=== PATIENT | male | born 1980 | race African-American/Black ===

== ENCOUNTER 2018-08-15 16:48 | Emergency (ER) | payer BC, SELFPAY ==
[2018-08-15 16:49] VITALS: BP 144/85; PULSE 88; RESP 18; TEMP 37.4; O2SAT 97; BMI 32.8
--- NOTE | 2018-08-15 17:00 | ED.DCSUM_ITS ---
History of Present Illness Chief Complaint: Dental Informant: Patient Onset: Weeks Narrative: Patient presents to the ED with left upper dental pain that started 1 week ago. He states he has been taking Tylenol for the pain without relief. He is now noted some swelling today around this area that he was concerned about. He does not taken thing else for analgesia. He has had this in the past and has went to a dental clinic for this. He denies any fever, chills, nausea, vomiting. Past Medical History - Allergies and Home Meds Allergies/Adverse Reactions: Allergies No Known Allergies Allergy (Verified 08/15/18 16:48) Primary Care Physician: Care Physician,No Primary [Primary Care Provider] - Surgical History: no surgical history Smoking Status: Current every day smoker - Family History Maternal Family History: Reports: No pertinent history Paternal Family History: Reports: No pertinent history Review of Systems General: Denies: Chills, Fever, Sweats Eyes: Denies: Visual changes - bilaterally, Diplopia ENT: Reports: - - Dental pain. Denies: Rhinorrhea, Sore throat Cardiovascular: Denies: Chest pain, Palpitations Respiratory: Denies: Dyspnea, Cough, Dyspnea on exertion Gastrointestinal: Denies: Abdominal pain, Nausea, Vomiting, Diarrhea, Melena, Hematochezia Genitourinary: Denies: Dysuria, Hematuria, Frequency Musculoskeletal: Denies: Back pain, Extremity Pain Skin: Denies: Rash, Wounds Neurological: Denies: Headache, Weakness, Numbness Physical Exam Vital Signs/Narrative: Vital Signs Temp Pulse Resp BP Pulse Ox 08/15/18 16:49 99.3 F H 88 18 144/85 H 97 General: Well nourished, Well developed, No Acute Distress Head: Normocephalic, Atraumatic Eyes: Perrl, EOMI ENT: - - Tenderness to palpation over left molar which does appear to be fractured. Surrounding edema especially to the medial aspect of this tooth with fluctuance. Neck: Supple, Nontender Cardiovascular: Regular rate, Regular rhythm, No murmurs Respiratory: No distress, CTA bilaterally, Chest nontender Abdomen: Soft, Nontender, Nondistended, Normal bowel sounds Back: Nontender, Normal Inspection Extremities: Nontender, No edema Skin: Normal color, No rash Neurological: Alert, Oriented x3, Cranial nerves II-XII grossly intact, Normal Strength, Normal Sensation Psychological: Normal affect, Normal Mood Diagnostic/Tx/Re-eval - Medical Decision Making Presents to the ED with left upper dental pain for the last week and notable swelling today. On physical exam, patient does appear to have a dental infection with periapical abscess. It was incised and drained in the emergency department. Patient was educated on warm salt water gargles. He will be placed on a course of penicillin VK and was instructed to take [id number] anti- inflammatories for analgesia. He was educated on signs/symptoms to return to the ED. He was instructed to follow-up with the dental clinic. He was provided discharge instructions. He is agreeable to plan. ED Disposition - Plan for ED Patient: Disposition: [facility] or Unit Diagnosis: Dental infection, Periapical abscess Instructions: Dental Abscess Prescriptions: Penicillin V Potassium 500 mg PO 4X/DAY #40 tab Prescription Printed Referrals: Care Physician,No Primary [Primary Care Provider] - Additional Instructions: Warm salt water gargles Take Tylenol or [id number] anti-inflammatories for pain Contact dental clinic tomorrow to arrange follow-up Take penicillin as prescribed
[2018-08-15 17:27] VITALS: RESP 18
== END 2018-08-15 17:26 | disposition home or self-care (01) ==
PROVIDERS: Emergency Provider Physician Assistant
DX: K04.7 Periapical abscess without sinus (principal); F17.200 Nicotine dependence, unspecified, uncomplicated
CPT/HCPCS: 41800; 99283

== ENCOUNTER 2019-02-16 13:39 | Emergency (ER) | payer BC, SELFPAY ==
[2019-02-16 13:40] VITALS: BP 154/82; PULSE 86; RESP 16; TEMP 36.5; BMI 31.4
--- NOTE | 2019-02-16 13:54 | ED.VIS.GEN ---
History of Present Illness Chief Complaint: Foreign Body Informant: Patient Onset: Today Narrative: Patient states that the end of a Q-tip broke out on his left ear canal he cannot get it out. Past Medical History - Allergies and Home Meds Allergies/Adverse Reactions: Allergies No Known Allergies Allergy (Verified 08/15/18 16:48) Primary Care Physician: Care Physician,No Primary [Primary Care Provider] - Surgical History: no surgical history Smoking Status: Current every day smoker - Family History Maternal Family History: Reports: No pertinent history Paternal Family History: Reports: No pertinent history Review of Systems General: Denies: Chills, Fever, Sweats Eyes: Denies: Visual changes - bilaterally, Diplopia ENT: Reports: - - Foreign body left ear. Denies: Bilateral ear pain, Left ear pain, Right ear pain, Rhinorrhea, Sore throat Cardiovascular: Denies: Chest pain, Palpitations Respiratory: Denies: Dyspnea, Cough, Dyspnea on exertion Gastrointestinal: Denies: Abdominal pain, Nausea, Vomiting, Diarrhea, Melena, Hematochezia Genitourinary: Denies: Dysuria, Hematuria, Frequency Musculoskeletal: Denies: Back pain, Extremity Pain Skin: Denies: Rash, Wounds Neurological: Denies: Headache, Weakness, Numbness Physical Exam Vital Signs/Narrative: Vital Signs Temp Pulse Resp BP 02/16/19 13:40 97.7 F L 86 16 154/82 H Inital Vital Signs reviewed: Yes General: Well nourished, Well developed, No Acute Distress Head: Normocephalic, Atraumatic Eyes: Perrl, EOMI ENT: Moist mucous membranes, No rhinorrhea, TM's clear, - - There is a piece of cotton in the left ear canal Neck: Supple, Nontender Cardiovascular: Regular rate, Regular rhythm, No murmurs Respiratory: No distress, CTA bilaterally, Chest nontender Abdomen: Soft, Nontender, Nondistended, Normal bowel sounds Back: Nontender, Normal Inspection Extremities: Nontender, No edema Skin: Normal color, No rash Neurological: Alert, Oriented x3, Cranial nerves II-XII grossly intact, Normal Strength, Normal Sensation Psychological: Normal affect, Normal Mood Diagnostic/Tx/Re-eval - Medical Decision Making Using warm water irrigation the Q-tip was removed without any difficulty. After irrigation tympanic membrane was intact. No significant irritation ear canal was noted. ED Disposition - Plan for ED Patient: Disposition: Home or Assisted Living Diagnosis: Ear foreign body Instructions: FOREIGN BODY, Ear Canal (Removed) Referrals: Casey Ramos MD [STAFF PHYSICIAN] - (as needed for primary care)
[2019-02-16 14:00] VITALS: BP 154/82; PULSE 86; RESP 16
== END 2019-02-16 14:03 | disposition home or self-care (01) ==
LOC: ED 14:02
PROVIDERS: Emergency Provider Emergency Medicine
DX: T16.2XXA Foreign body in left ear, initial encounter (principal); X58.XXXA Exposure to other specified factors, initial encounter; Y93.9 Activity, unspecified; Y92.9 Unspecified place or not applicable; F17.200 Nicotine dependence, unspecified, uncomplicated
CPT/HCPCS: 99282

== ENCOUNTER 2019-08-04 11:22 | Emergency (ER) | payer BC, SELFPAY ==
[2019-08-04 11:24] VITALS: BP 143/86; PULSE 109; RESP 16; TEMP 36.3; O2SAT 97; BMI 32.1
--- NOTE | 2019-08-04 11:37 | ED.VIS.GEN ---
History of Present Illness Chief Complaint: Upper Extremity Injury Informant: Patient Onset: Days Current Severity: Mild Maximum Severity: Mild Narrative: Patient complains of a pain to the left proximal forearm area medially that he has had since Thursday he indicates this part of his forearm will simply spasm primarily when he is at work and he has to stop what he is doing. He has no other complaints or symptoms he takes basically his finger and draws it across the medial left proximal forearm area 6 cm diameter tunica-biloxi. 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 He has no arthritic or joint pains or complaints he denies fever cough chest pain. He indicates when he is not working he does not have the spasm he was concerned he would have persistent symptoms today so he did not go to work Past Medical History - Allergies and Home Meds Allergies/Adverse Reactions: Allergies No Known Allergies Allergy (Verified 08/04/19 11:23) Primary Care Physician: Care Physician,No Primary [Primary Care Provider] - Past Medical History: - - He denies any history of cardiovascular orthopedic or any past history Surgical History: no surgical history Smoking Status: Current every day smoker - Family History Maternal Family History: Reports: No pertinent history Paternal Family History: Reports: No pertinent history Review of Systems General: Denies: Chills, Fever, Sweats Eyes: Denies: Visual changes - bilaterally, Diplopia ENT: Denies: Rhinorrhea, Sore throat Cardiovascular: Denies: Chest pain, Palpitations Respiratory: Denies: Dyspnea, Cough, Dyspnea on exertion Gastrointestinal: Denies: Abdominal pain, Nausea, Vomiting, Diarrhea, Melena, Hematochezia Genitourinary: Denies: Dysuria, Hematuria, Frequency Musculoskeletal: Reports: Extremity Pain. Denies: Back pain Skin: Denies: Rash, Wounds Neurological: Denies: Headache, Weakness, Numbness Physical Exam Vital Signs/Narrative: Vital Signs Temp Pulse Resp BP Pulse Ox 08/04/19 11:24 97.4 F L 109 H 16 143/86 H 97 General: Well nourished, Well developed, No Acute Distress Head: Normocephalic, Atraumatic Eyes: Perrl, EOMI ENT: Moist mucous membranes, No rhinorrhea Neck: Supple, Nontender Cardiovascular: Regular rate, Regular rhythm, No murmurs Respiratory: No distress, CTA bilaterally, Chest nontender Abdomen: Soft, Nontender, Nondistended, Normal bowel sounds Back: Nontender, Normal Inspection Extremities: Nontender, No edema, - - He points to the left medial proximal forearm area again the 6 cm tunica-biloxi this area is soft there is no signs of warmth mass trauma or infection he has full range of motion at the elbow shoulder forearm otherwise unremarkable wrist function hand function finger thumb function normal radial pulse cap refill all normal he is able to fully flex and extend at the elbow he has no tenderness to palpation of any of the bony prominences of the left upper extremity he denies any trauma except the repetitive work as above the rest of his physical exam is unremarkable this is the only part of his body bothering him and currently he is really not having any symptoms as he did not exercise the extremity at work Skin: Normal color, No rash Neurological: Alert, Oriented x3, Cranial nerves II-XII grossly intact, Normal Strength, Normal Sensation Psychological: Normal affect, Normal Mood Diagnostic/Tx/Re-eval - Medical Decision Making I had a long conversation with the patient he has having no cardiovascular symptoms of a focal area involving this part of his left upper extremity we discussed obtaining imaging studies he declined that at this time of explained exact etiology is unclear he will require further management he is comfortable discharge home on Naprosyn off work for a few days ice to the area and follow-up with orthopedics and return for change in symptoms Home stable Final impression left upper extremity forearm medial pain etiology unclear ED Disposition - Plan for ED Patient: Instructions: ED ELBOW SPRAIN Prescriptions: Naproxen [Naprosyn] 500 mg PO BID PRN #20 tab Prescription Printed Referrals: Care Physician,No Primary [Primary Care Provider] - Nghia Solis MD [STAFF PHYSICIAN] -
[2019-08-04] MEDS: Naproxen 500 MG Tablet PO (11:54)
== END 2019-08-04 12:10 | disposition home or self-care (01) ==
LOC: ED 11:59
PROVIDERS: Emergency Provider Emergency Medicine
DX: M79.632 Pain in left forearm (principal); F17.200 Nicotine dependence, unspecified, uncomplicated
CPT/HCPCS: 99283

== ENCOUNTER 2019-11-08 20:08 | Emergency (ER) | payer BC, SELFPAY ==
[2019-11-08 20:09] VITALS: BP 140/92; PULSE 80; RESP 18; TEMP 36.6; O2SAT 98; BMI 32.1
--- NOTE | 2019-11-08 20:18 | ED.DCSUM_ITS ---
- ER Visit Summary Date of Service: 11/08/19 Chief Complaint: Cough History of Present Illness: The patient is a 39 M who presents with cough. Started 2 days ago. His cough is productive of sputum. He also admits to sinus congestion. No documented fevers at home. He has had chills. No ear pain or sore throat. He has had nasal congestion along with this. He took no medications for this at home. He states that he also lost his sense of taste today. He denies any exposure to anybody with coronavirus Physical Examination: Vital signs reviewed. HEENT exam unremarkable. Heart is regular rate and rhythm without murmurs. Lungs are clear to auscultation. Abdomen is soft and nontender. Extremities reveal no edema. Skin exam normal. Neurologic exam normal. Test Results: Coronavirus test is pending Emergency Department Course and Treatment: The patient's vital signs are normal. His lung sounds are clear. He may have the coronavirus. I will test him as a send out. I will give him Mucinex here, Mucinex D and albuterol for home. He will follow-up with his PCP. Treatment Plan: [] Disposition: Discharge Impression: URI, concern for coronavirus This note was generated with [employer] dictation software. It may contain incorrect words, spelling, and punctuation that were not noted in review of the chart prior to signing ED Disposition - Plan for ED Patient: Disposition: Home or Assisted Living Instructions: ED Upper Resp Infec No Abx Tx Prescriptions: Guaifenesin/Pseudoephedrne HCl [Mucinex D ER 600-60 mg Tablet] 1 ea PO BID #14 tab.er.12h Transmission Status: Pending to [facility] Albuterol Inhaler [Ventolin Hfa] 1 - 2 puff INHALATION Q4H PRN PRN #1 inhaler PRN Reason: Wheezing Transmission Status: Pending to [facility] Referrals: Care Physician,No Primary [Primary Care Provider] -
[2019-11-08] MEDS: guaiFENesin 600 MG Tablet PO (20:27)
[2019-11-08 20:37] VITALS: RESP 18
== END 2019-11-08 20:42 | disposition home or self-care (01) ==
LOC: ED 20:24
PROVIDERS: Emergency Provider Emergency Medicine
DX: J06.9 Acute upper respiratory infection, unspecified (principal); Z20.828 Contact with and (suspected) exposure to other viral communicable diseases
CPT/HCPCS: 87635; 99283; C9803; U0003

== ENCOUNTER 2020-04-17 05:22 | Emergency (ER) | payer BC, SELFPAY ==
[2020-04-17 05:26] VITALS: BP 180/104; PULSE 98; RESP 16; TEMP 36.9; O2SAT 100; BMI 35.2
--- NOTE | 2020-04-17 05:39 | ED.VISSUMM ---
- ER Visit Summary Date of Service: 04/17/20 Chief Complaint: Back pain History of Present Illness: The patient is a 40 M who almost fell but caught himself. This happened last night. He is having back pain since. The pain is in his lower back and radiates down his left leg laterally. He never had this before. No numbness or anesthesia. No bowel or bladder change. No abdominal pain or GI symptoms. No urinary symptoms. No numbness or weakness. No fever or systemic symptoms. No history of blood thinners. No history of cancer or immune compromise. No other trauma. No surgical history. Physical Examination: Afebrile vital signs unremarkable except for blood pressure 180/104. Inspection is normal. He has diffuse tenderness with light touch to his lumbar region. Good strength, sensation. Reflexes 2+ and symmetric. Pulses strong and equal. Test Results: None indicated Emergency Department Course and Treatment: Patient has myofascial back pain. There is nothing to suggest fracture, abscess, hematoma, cauda equina. Emergent imaging is not indicated. He was treated with Toradol and Norflex. Will reassess. Patient was advised that he may have new or worsening issues, and should return if he develop as he may need further evaluation, otherwise he may follow-up with primary care for his back pain and to recheck his blood pressure. Treatment Plan: As above Disposition: Discharge Impression: Lumbar back pain This note was generated with [employer] dictation software. It may contain incorrect words, spelling, and punctuation that were not noted in review of the chart prior to signing ED Disposition - Plan for ED Patient: Referrals: Care Physician,No Primary [Primary Care Provider] -
[2020-04-17] MEDS: Ketorolac 60 MG/2 ML Vial IM (05:49)
[2020-04-17] MEDS: Orphenadrine 60 MG/2 ML Ampul IM (05:50)
--- NOTE | 2020-04-17 06:05 | ED.DEP ---
ED Disposition - Plan for ED Patient: Instructions: ED Back Sprain/Strain Prescriptions: cycloBENZAPRine HCl [Flexeril] 10 mg PO TID PRN #20 tablet PRN Reason: Muscle Spasm cycloBENZAPRine HCl [Flexeril] 10 mg PO TID PRN #20 tab PRN Reason: Muscle Spasm Prescription Printed Naproxen [Naprosyn] 500 mg PO BID PRN #20 tablet Naproxen [Naprosyn] 500 mg PO BID PRN #20 tab Prescription Printed Referrals: David Jordan MD [STAFF PHYSICIAN] -
[2020-04-17 06:15] VITALS: BP 154/98; PULSE 88; RESP 18; O2SAT 97
== END 2020-04-17 06:17 | disposition home or self-care (01) ==
LOC: ED 06:14
PROVIDERS: Emergency Provider Emergency Medicine
DX: M54.5 Low back pain (principal); Z72.0 Tobacco use
CPT/HCPCS: 96372; 99282

== ENCOUNTER 2021-01-14 08:54 | Emergency (ER) | payer BC, SELFPAY ==
[2021-01-14 08:55] VITALS: BP 161/95; PULSE 84; RESP 18; TEMP 35.9; O2SAT 97; BMI 32.1
--- NOTE | 2021-01-14 09:06 | ED.VIS.BACK ---
HPI History of Present Illness Chief Complaint: Back Informant: patient Narrative Narrative: 40-year-old male states that yesterday evening developed pain in the right SI joint area. He denies any radicular symptoms. He notes he cannot seem to find a position of comfort. But he did find was that if he puts a sock over the SI joint that is balled up and lay down that makes it feel better. He denies any known injuries. He states that about 5 months ago he had a similar episode and was received a cortisone shot but did not like the way it made him feel. There is no red flag symptoms or history. PFSH PFSH Home Medications cyclobenzaprine 10 mg PO TID PRN #20 tab 04/17/20 [Rx Last Taken Unknown] naproxen 500 mg PO BID PRN #20 tab 04/17/20 [Rx Last Taken Unknown] hydrocodone-acetaminophen 1 tab PO Q6H PRN PRN 3 Days #10 tablet 01/14/21 [Rx Last Taken Unknown] prednisone 60 mg PO DAILY #15 tablet 01/14/21 [Rx Last Taken Unknown] Allergy/AdvReac Type Severity Reaction Status Date / Time No Known Allergies Allergy Verified 04/17/20 05:23 Social History (Updated 01/14/21 @ 09:[address] Stef Medina, DO) current gender identity: male Smoking Status: Current every day smoker ROS ROS ED Constitutional Constitutional ED: Denies chills, fever(s) or weight loss Eyes Eyes: Denies change in vision or diplopia ENT ENT ED: Denies ear pain, rhinorrhea or sore throat Cardiovascular Cardiovascular: Denies chest pain, orthopnea, palpitations or racing heartbeat Respiratory/Chest Respiratory/Chest: Denies cough, dyspnea or orthopnea Gastrointestinal Gastrointestinal: Denies abdominal pain, diarrhea, nausea or vomiting Genitourinary Genitourinary ED: Denies dysuria, hematuria or urinary frequency Musculoskeletal Musculoskeletal: Reports back pain; Denies arthralgias or myalgias Integumentary Denies abscess or rash Neurologic Neurologic: Denies headache(s), paresthesias or weakness Psychiatric Psychiatric: Denies anxiety, depression, suicidal ideation or suicidal thoughts Endocrine Endocrinology: Denies polydipsia, polyphagia or polyuria Allergic/Immunologic Allergic/Immunologic ED: Denies mouth swelling, tongue swelling or urticaria EXAM Physical Exam Const Vital Signs: 01/14/21 08:55 Temperature 96.7 F L Temperature Source Temporal Pulse Rate 84 Respiratory Rate 18 Blood Pressure 161/95 H Blood Pressure Mean 117 Pulse Ox 97 Oxygen Delivery Method Room Air Positive well nourished, well developed and obese General Appearance ED: well developed Nutritional Appearance: obese HEENT Reports normocephalic, head/scalp atraumatic, TM's clear and moist mucous membranes Negative for trauma Tympanic Membrane ED: Yes TM's clear Eyes PERRL and EOMs intact bilaterally Neck no lymphadenopathy, supple and no JVD Resp normal respiratory effort and clear to auscultation bilaterally Cardio regular rate, regular rhythm and no murmurs GI normal to inspection, nondistended, normoactive bowel sounds and non-tender Palpation: soft Back/Spine no CVA tenderness and normal ROM Back/Spine Narrative: Patient has focal tenderness at the right SI joint. Sacrum appears to be rotated left Extremity normal to inspection General Extremety ED: Negative for edema General Extremity: Negative for edema Neuro oriented x3 and CN's II-XII intact bilaterally Sensorium / Orientation: alert Motor Exam: strength 5/5 throughout Deep Tendon Reflexes: Rt Patellar (L4): 2+, Lt Patellar (L4): 2+, Rt Ankle (S1): 2+ and Lt Ankle (S1): 2+ Deep Tendon Reflexes Back: Rt Patellar (L4): 2+, Lt Patellar (L4): 2+, Rt Ankle (S1): 2+ and Lt Ankle (S1): 2+ Psych mental status grossly normal Mood & Affect: Negative for depressed or tearful Skin no rashes or lesions noted and no wounds MDM MDM MDM Narrative Medical decision making narrative: Patient does not wish a cortisone injection. He would like oral steroids. Also place him on pain medications. I advised him he may benefit from PT eval as this will most likely recur. We also discussed different forms of stretching that may help him. Discharge Plan Triage Chief Complaint: Back ED Provider: Stef Medina Dx/Rx/DC Orders Clinical Impression: Somatic dysfunction of right sacroiliac joint Instructions: Relieving Back Pain Prescriptions: New hydrocodone-acetaminophen [hydrocodone-acetaminophen] 1 TABLET tablet 1 tab PO Q6H PRN PRN (Reason: Pain) 3 Days Qty: 10 RF: 0 prednisone 20 MG tablet 60 mg PO DAILY Qty: 15 RF: 0 No Action cyclobenzaprine 10 MG tablet 10 mg PO TID PRN (Reason: Muscle Spasm) Qty: 20 RF: 0 naproxen 500 MG tablet 500 mg PO BID PRN Qty: 20 RF: 0 Primary Care Provider: Care Physician,No Primary Referrals: Casey Ramos MD [STAFF PHYSICIAN] - As Needed (For primary care) Care Physician,No Primary [Primary Care Provider] - Disposition Disposition: Home, Self Care
== END 2021-01-14 09:25 | disposition home or self-care (01) ==
LOC: ED 09:19
PROVIDERS: Emergency Provider Emergency Medicine
DX: M99.04 Segmental and somatic dysfunction of sacral region (principal); Z79.52 Long term (current) use of systemic steroids; Z79.899 Other long term (current) drug therapy; F17.210 Nicotine dependence, cigarettes, uncomplicated
CPT/HCPCS: 99281; 99282

== ENCOUNTER 2021-12-09 13:37 | Emergency (ER) | payer OTHER, SELFPAY ==
[2021-12-09 13:38] VITALS: BP 136/87; PULSE 87; RESP 16; TEMP 36.8; O2SAT 96; BMI 31.8
--- NOTE | 2021-12-09 15:17 | ED.VIS.BACK ---
HPI History of Present Illness Chief Complaint: Back Informant: patient Narrative Narrative: 41-year-old male presenting with back pain radiating to his right leg. Patient states this started a few weeks ago. He does not recall a specific injury. He states he had a lumbar epidural injection approximately a year ago and was doing well until few weeks ago. He is able to ambulate with pain. He denies bowel or bladder incontinence. Denies fever. He has tried Tylenol at home for pain. Prior similar symptoms: Yes Recent Illness/Hospitalization: No PFSH PFSH Home Medications cyclobenzaprine 10 mg tablet 10 mg PO TID PRN Muscle Spasm #20 tabs 04/17/20 [Rx Last Taken Unknown] naproxen 500 mg tablet 500 mg PO BID PRN #20 tabs 04/17/20 [Rx Last Taken Unknown] hydrocodone-acetaminophen 5-325mg 5mg-325mg 1 tab PO Q6H PRN PRN Pain 3 days #10 TABLETS 01/14/21 [Rx Last Taken Unknown] prednisone 20 mg tablet 60 mg PO DAILY #15 TABLETS 01/14/21 [Rx Last Taken Unknown] cyclobenzaprine 10 mg tablet 10 mg PO TID PRN Muscle Spasm #20 TABLETS 12/09/21 [Rx Last Taken Unknown] naproxen 500 mg tablet (Naprosyn) 500 mg PO BID PRN pain #20 tabs 12/09/21 [Rx Last Taken Unknown] Allergy/AdvReac Type Severity Reaction Status Date / Time No Known Allergies Allergy Verified 12/09/21 13:37 Social History Smoking Status: Current every day smoker tobacco type: cigarettes EXAM Physical Exam Const Vital Signs: 12/09/21 13:38 Temperature 98.2 F Temperature Source Temporal Pulse Rate 87 Respiratory Rate 16 Blood Pressure 136/87 H Blood Pressure Mean 103 Pulse Ox 96 Oxygen Delivery Method Room Air Positive well nourished and well developed General Appearance ED: well developed HEENT Reports normocephalic and head/scalp atraumatic Eyes PERRL and EOMs intact bilaterally Neck supple General: Negative for tenderness Chest Wall inspection of chest normal Resp normal respiratory effort and clear to auscultation bilaterally Cardio regular rate and regular rhythm GI non-tender and non-distended Palpation: soft; Negative for guarding or rebound tenderness present no CVA tenderness Back/Spine Back/Spine Narrative: Right paraspinal lumbar muscle tenderness, no midline tenderness. Lumbar Spine / Lower Back: straight leg raise positive right Extremity normal to inspection Neuro oriented x3 and no sensory deficits noted Neuro Narrative: Normal strength and sensation. Sensorium / Orientation: alert Psych mental status grossly normal MDM MDM MDM Narrative Medical decision making narrative: Patient given morphine and Zofran IM x1. He is given prescription for Naprosyn and Flexeril. Advised to follow-up with primary care physician. Advised return to ED for worsening complaints. Discharge Plan Triage Chief Complaint: Back ED Provider: Rasheeda Quinones Dx/Rx/DC Orders Clinical Impression: Sciatica, Acute exacerbation of chronic low back pain Instructions: ED Back Pain (Acute or Chronic) Prescriptions: New naproxen [Naprosyn] 500 mg tablet 500 mg PO BID PRN (Reason: pain) Qty: 20 0RF cyclobenzaprine 10 mg tablet 10 mg PO TID PRN (Reason: Muscle Spasm) Qty: 20 0RF No Action cyclobenzaprine 10 MG tablet 10 mg PO TID PRN (Reason: Muscle Spasm) Qty: 20 0RF naproxen 500 MG tablet 500 mg PO BID PRN Qty: 20 0RF hydrocodone-acetaminophen [hydrocodone-acetaminophen] 1 TABLET tablet 1 tab PO Q6H PRN PRN (Reason: Pain) 3 Days Qty: 10 0RF prednisone 20 MG tablet 60 mg PO DAILY Qty: 15 0RF Primary Care Provider: Care Physician,No Primary Referrals: Bird Cisneros, [Non-Staff] - Care Physician,No Primary [Primary Care Provider] - Disposition Disposition: Home, Self Care
--- NOTE | 2021-12-09 15:23 | CM.ED ---
SW Note Referral Source: Case Find Referral Reason: No Primary Care Physician (PCP) SW reviewed chart and noted that patient has no PCP. SW provided patient with list of [facility] and [facility] Physician List for reference. No other issues or concerns voiced at this time. SW remains available for any additional needs. Plan: Provided patient with PCP information Maura SHORT
[2021-12-09] MEDS: Ondansetron 4 MG/2 ML Vial IM (15:27)
[2021-12-09] MEDS: Morphine 4 MG/ML Syringe 8 MG IM (15:27)
== END 2021-12-09 15:54 | disposition home or self-care (01) ==
PROVIDERS: Emergency Provider Emergency Medicine; Visit Provider Emergency Medicine
DX: M54.40 Lumbago with sciatica, unspecified side (principal); F17.210 Nicotine dependence, cigarettes, uncomplicated
CPT/HCPCS: 96372; 99283; J2405

== ENCOUNTER 2024-02-27 10:55 | Emergency (ER) | payer SELFPAY ==
[2024-02-27 10:56] VITALS: BP 134/82; PULSE 86; RESP 15; TEMP 36.4; O2SAT 98; BMI 32.1
--- NOTE | 2024-02-27 13:04 | ED.VIS.BACK ---
HPI <KASHIF Banks - Last Filed: 02/27/24 17:48> History of Present Illness Chief Complaint: Back Narrative Narrative: Patient presenting today with right lower back pain that started yesterday while at work. He thinks he may have pulled something at work and reports performing a lot of repetitive movements such as squatting, bending over, crouching down, and lifting boxes. Towards the end of his shift he started to feel pain in his right scrotum that worsened this morning. He has concerns for hernia. He denies any bowel/bladder incontinence, saddle paresthesia, fevers, chills, hematuria, dysuria, concern for STDs, or injury to his back. PFSH <KASHIF Banks - Last Filed: 02/27/24 17:48> [facility] Home Medications ?Medication ?Instructions ?Recorded ?Last Taken ?Type cyclobenzaprine 10 mg tablet 10 mg PO TID PRN Muscle Spasm #20 04/17/20 Unknown Rx tabs naproxen 500 mg tablet 500 mg PO BID PRN #20 tabs 04/17/20 Unknown Rx hydrocodone-acetaminophen 5-325mg 1 tab PO Q6H PRN PRN Pain 3 days 01/14/21 Unknown Rx 5mg-325mg #10 TABLETS prednisone 20 mg tablet 60 mg (3 x 20 mg) PO DAILY #15 01/14/21 Unknown Rx TABLETS cyclobenzaprine 10 mg tablet 10 mg PO TID PRN Muscle Spasm #20 12/09/21 Unknown Rx TABLETS naproxen 500 mg tablet (Naprosyn) 500 mg PO BID PRN pain #20 tabs 12/09/21 Unknown Rx ciprofloxacin HCl 500 mg tablet 500 mg PO BID #19 tabs 02/27/24 Unknown Rx Allergy/AdvReac Type Severity Reaction Status Date / Time No Known Allergies Allergy Verified 02/27/24 10:58 Social History Smoking Status: Current every day smoker tobacco type: cigarettes ROS <KASHIF Banks - Last Filed: 02/27/24 17:48> ROS ED Constitutional Constitutional ED: Denies chills or fever(s) Cardiovascular Cardiovascular: Denies chest pain Respiratory/Chest Respiratory/Chest: Denies dyspnea Gastrointestinal Gastrointestinal: Denies abdominal pain, nausea or vomiting Genitourinary Genitourinary ED: Denies dysuria, hematuria or urinary urgency Musculoskeletal Musculoskeletal: Reports back pain Integumentary Denies rash Neurologic Neurologic: Denies paresthesias EXAM <KASHIF Banks - Last Filed: 02/27/24 17:48> Physical Exam Const Vital Signs: 02/27/24 10:56 02/27/24 14:55 02/27/24 16:56 Temperature 97.6 F L 98.0 F Temperature Source Temporal Pulse Rate 86 91 84 Respiratory Rate 15 16 18 Blood Pressure 134/82 H 129/61 H 129/63 H Blood Pressure Mean 99 83 85 Pulse Ox 98 98 96 Oxygen Delivery Method Room Air Room Air Positive well nourished, well developed and no apparent distress General Appearance ED: well developed HEENT Reports normocephalic and head/scalp atraumatic Mouth ED: Yes moist mucous membranes normal Eyes PERRL and EOMs intact bilaterally Neck full ROM and supple Chest Wall inspection of chest normal Resp normal respiratory effort and clear to auscultation bilaterally Cardio regular rate and regular rhythm Back/Spine normal ROM and normal to inspection Back/Spine Narrative: Pain to palpation to the right lumbar paraspinal muscles. No midline spinal tenderness. Extremity normal to inspection and full ROM Neuro oriented x3, CN's II-XII intact bilaterally, moves all extremities, no focal motor deficits and no sensory deficits noted Neuro Narrative: Strength and sensation 5/5 throughout Sensorium / Orientation: awake and alert Deep Tendon Reflexes: Rt Patellar (L4): 2+ and Lt Patellar (L4): 2+ Deep Tendon Reflexes Back: Rt Patellar (L4): 2+ and Lt Patellar (L4): 2+ Psych mental status grossly normal and thought process normal Skin no rashes or lesions noted and no wounds <Dr. Neal Arroyo MD - Last Filed: 02/27/24 16:44> Physical Exam Const Vital Signs: 02/27/24 10:56 02/27/24 14:55 02/27/24 16:56 Temperature 97.6 F L 98.0 F Temperature Source Temporal Pulse Rate 86 91 84 Respiratory Rate 15 16 18 Blood Pressure 134/82 H 129/61 H 129/63 H Blood Pressure Mean 99 83 85 Pulse Ox 98 98 96 Oxygen Delivery Method Room Air Room Air MDM <KASHIF Banks - Last Filed: 02/27/24 17:48> MDM MDM Narrative Medical decision making narrative: Patient presenting today with right lower back pain and pain in his right scrotum that started yesterday. No cauda equina symptoms. Exam does not appear consistent with a kidney stone. He does have reproducible tenderness to his right lumbar paraspinal muscles consistent with a muscular strain. The attending physician did perform a testicular exam which showed a tender and swollen right hemiscrotum consistent with orchitis. He denies concerns for STDs or urinary symptoms. Ultrasound was obtained and shows no evidence of testicular torsion and a questionable right inguinal hernia. I will give him a referral to general surgery for the hernia. I will treat him with ciprofloxacin twice daily for 10 days for the orchitis. He was given Toradol here for his pain which did give him some improvement. He can alternate Tylenol and ibuprofen at home as needed for his pain. We did try to obtain a UA but he was unable to provide a sample. He will be discharged home in stable condition. I have personally performed a face to face assessment of the patient and have reviewed the CLAUDIA Note. I performed a substantive portion of the visit including all aspects of the following. My rayo findings include: History is 44-year-old male complaining of right scrotal pain. No prior history. Denies any fall or trauma. No dysuria or hematuria. No penile discharge. Said was fine yesterday and when he woke up this morning he is swollen tender right scrotal area. No prior history. Denies any injury. He does have some low back pain he said that is from work he was not concerned about that as not why he came in. Exam is [well-appearing 44-year-old male. Vital signs stable afebrile. H EENT exam pupils round reactive light. No trauma. Neck nontender. Back nontender. Lungs clear. Heart regular rhythm no murmur. Chest wall ribs nontender. Abdomen soft, nondistended, normal bowel sounds without peritoneal signs. Nathalia nontender. No hernia or mass in either inguinal area. External exam is a circumcised male. No discharge or bleeding. No discoloration. Right hemiscrotum is swollen consistent with an orchitis. He is tenderness on his right testicle. There is no obvious torsion. Left hemiscrotum and testicle are nontender. No mass appreciated. No bruising or necrotic tissue. Moving all 4 extremities. Nontender no edema. Normal strength and range of motion. Neurologically he is awake and alert. No focal motor deficits.] Medical Decision Making [44-year-old male with atraumatic right hemiscrotal pain and swelling. UA. Right testicular ultrasound. Clinically I think this is most likely a orchitis or epididymal orchitis.] Other additions or changes: [Testicular ultrasound with question of possible hernia. Really was not consistent with orchitis even though his exam is consistent with orchitis. I reevaluated the patient standing. He may have a small right inguinal hernia is got tenderness in the canal with a bulge with coughing. He still has an enlarged right testicle that is tender. He will be treated both for orchitis with Cipro twice daily for 10 days. And follow-up with general surgery for possible hernia.] Radiography Diagnostic Testing: Clinical Impression(s) from Imaging Studies Testicular Ultrasound 02/27/24 13:34 IMPRESSION: No evidence of testicular torsion at the time this examination was performed. Questionable small right inguinal hernia. Electronically Signed: Aquiles Preston MD at 15:39 EST , <Dr. Neal Arroyo MD - Last Filed: 02/27/24 16:44> [facility] Narrative Medical decision making narrative: I have personally performed a face to face assessment of the patient and have reviewed the CLAUDIA Note. I performed a substantive portion of the visit including all aspects of the following. My rayo findings include: History is 44-year-old male complaining of right scrotal pain. No prior history. Denies any fall or trauma. No dysuria or hematuria. No penile discharge. Said was fine yesterday and when he woke up this morning he is swollen tender right scrotal area. No prior history. Denies any injury. He does have some low back pain he said that is from work he was not concerned about that as not why he came in. Exam is [well-appearing 44-year-old male. Vital signs stable afebrile. H EENT exam pupils round reactive light. No trauma. Neck nontender. Back nontender. Lungs clear. Heart regular rhythm no murmur. Chest wall ribs nontender. Abdomen soft, nondistended, normal bowel sounds without peritoneal signs. Nathalia nontender. No hernia or mass in either inguinal area. External exam is a circumcised male. No discharge or bleeding. No discoloration. Right hemiscrotum is swollen consistent with an orchitis. He is tenderness on his right testicle. There is no obvious torsion. Left hemiscrotum and testicle are nontender. No mass appreciated. No bruising or necrotic tissue. Moving all 4 extremities. Nontender no edema. Normal strength and range of motion. Neurologically he is awake and alert. No focal motor deficits.] Medical Decision Making [44-year-old male with atraumatic right hemiscrotal pain and swelling. UA. Right testicular ultrasound. Clinically I think this is most likely a orchitis or epididymal orchitis.] Other additions or changes: [Testicular ultrasound with question of possible hernia. Really was not consistent with orchitis even though his exam is consistent with orchitis. I reevaluated the patient standing. He may have a small right inguinal hernia is got tenderness in the canal with a bulge with coughing. He still has an enlarged right testicle that is tender. He will be treated both for orchitis with Cipro twice daily for 10 days. And follow-up with general surgery for possible hernia.] History & Record Review Discussion w/independent historian: Patient and Family Radiography Diagnostic Testing: Clinical Impression(s) from Imaging Studies Testicular Ultrasound 02/27/24 13:34 IMPRESSION: No evidence of testicular torsion at the time this examination was performed. Questionable small right inguinal hernia. Electronically Signed: Aquiles Preston MD at 15:39 EST , Discharge Plan Triage Chief Complaint: Back ED Midlevel Provider: Bianca Cobian ED Provider: Neal Arroyo Dx/Rx/DC Orders Clinical Impression: Acute orchitis, Hernia, inguinal, right Instructions: ED Hernia (Adult), ED Orchitis Prescriptions: New ciprofloxacin HCl 500 mg tablet 500 mg PO BID Qty: 19 0RF No Action cyclobenzaprine 10 MG tablet 10 mg PO TID PRN (Reason: Muscle Spasm) Qty: 20 0RF naproxen 500 MG tablet 500 mg PO BID PRN Qty: 20 0RF hydrocodone-acetaminophen [hydrocodone-acetaminophen] 1 TABLET tablet 1 tab PO Q6H PRN PRN (Reason: Pain) 3 Days Qty: 10 0RF prednisone 20 MG tablet 60 mg PO DAILY Qty: 15 0RF naproxen [Naprosyn] 500 mg tablet 500 mg PO BID PRN (Reason: pain) Qty: 20 0RF cyclobenzaprine 10 mg tablet 10 mg PO TID PRN (Reason: Muscle Spasm) Qty: 20 0RF Primary Care Provider: Care Physician,No Primary Referrals: Gamal Paz MD [Med Staff - Active Staff] - 1 Week Care Physician,No Primary [Primary Care Provider] - Activity Restrictions/Additional Instructions: Follow-up with general surgery. Return for any worsening of your symptoms. Alternate Tylenol and ibuprofen as needed for pain. Print Language: French Disposition Disposition: Home, Self Care Discharge Date/Time: 02/27/24 16:57
--- NOTE | 2024-02-27 13:34 | US_ITS ---
INDICATION: R scrotal pain EXAMINATION: Ultrasound US Scrotum (Contents) TECHNIQUE: Realtime ultrasound of the testicles was performed with grayscale, Color Doppler and spectral Doppler analysis. COMPARISON: No relevant prior comparison study available FINDINGS: RIGHT: TESTIS: 3.8 x 2.5 x 2.2 cm. Normal in size and echotexture, without focal lesion. COLOR DOPPLER: Normal arterial flow present in the testicle with monophasic waveforms. EPIDIDYMIS: Normal in size and echotexture, without focal lesion. [Normal color Doppler flow pattern in the epididymis. HYDROCELE: Small right hydrocele. VARICOCELE: None. LEFT: TESTIS: 4 x 2.4 x 2.2 cm. Normal in size and echotexture, without focal lesion. COLOR DOPPLER: Normal arterial flow present in the testicle with monophasic waveforms. EPIDIDYMIS: Normal in size and echotexture, without focal lesion. [Normal color Doppler flow pattern in the epididymis. HYDROCELE: None. VARICOCELE: None. Possible small right inguinal hernia. US/Testicular with Arterial Flow IMPRESSION: No evidence of testicular torsion at the time this examination was performed. Questionable small right inguinal hernia. Electronically Signed: Aquiles Preston MD at 15:39 EST ,
[2024-02-27] MEDS: Ketorolac 15 MG/ML Vial IM (13:43)
[2024-02-27 14:55] VITALS: BP 129/61; PULSE 91; RESP 16; O2SAT 98
[2024-02-27] MEDS: Ciprofloxacin 500 MG Tablet PO (16:53)
[2024-02-27 16:56] VITALS: BP 129/63; PULSE 84; RESP 18; TEMP 36.7; O2SAT 96
== END 2024-02-27 16:57 | disposition home or self-care (01) ==
PROVIDERS: Emergency Provider Emergency Medicine; Visit Provider Emergency Medicine
DX: N45.2 Orchitis (principal); K40.90 Unilateral inguinal hernia, without obstruction or gangrene, not specified as recurrent; M54.50 Low back pain, unspecified; F17.210 Nicotine dependence, cigarettes, uncomplicated
CPT/HCPCS: 76870; 93976; 99282

== ENCOUNTER → 2024-03-28 | Outpatient (CLI) | payer BC, SELFPAY ==
--- NOTE | 2024-03-28 07:01 | CT_ITS ---
PROCEDURE: ABDOMEN/PELVIS WITH CONTRAST REASON FOR EXAM: One-month history of right-sided abdominal pain. Possible inguinal hernia. TECHNIQUE: Abdomen and pelvis CT with intravenous contrast. IV CONTRAST: 100 mL of Isovue-300 was injected intravenously. COMPARISON: None. FINDINGS: Lung bases: Clear Liver: Diffuse fatty infiltration. Gallbladder: Unremarkable. Spleen: Unremarkable. Pancreas: Unremarkable. Adrenals: Left adrenal nodule consistent with an adenoma this measures 1.6 cm. Kidneys: Unremarkable. Bladder: Unremarkable. Reproductive Organs: Unremarkable. Bowel: Colonic diverticulosis without diverticulitis. There is a mild degree of circumferential thickening and heterogeneous appearance of the terminal ileum. Early inflammatory bowel disease should be ruled out. Appendix: Normal. Lymph nodes: No suspicious lymph node enlargement. Vasculature: Major vascular structures are unremarkable. Peritoneum / Retroperitoneum: No ascites. No free air. Bones: Degenerative changes of the spine. Mild degree of bladder wall thickening. No evidence of hernia. CT/Abdomen/Pelvis WITH Contrast IMPRESSION: Fatty infiltration of the liver. Findings suggestive of 1.6 cm left adrenal adenoma. Thickening of the terminal ileum. Clinical correlation recommended. One or more dose reduction techniques were used (e.g., Automated exposure contr ol, adjustment of the mA and/or kV according to patient size, use of iterative reconstruction technique). Reading Location: [place] [id number]
== END | disposition home or self-care (01) ==
LOC: CT 06:55
PROVIDERS: Referring Provider Surgery; Visit Provider Surgery
DX: K40.90 Unilateral inguinal hernia, without obstruction or gangrene, not specified as recurrent (principal); N45.2 Orchitis
CPT/HCPCS: 74177; Q9967

== ENCOUNTER → 2024-06-08 | Outpatient (CLI) | payer MEDICAID, SELFPAY ==
[2024-06-08 12:53] LABS: Absolute Lymphocyte Count 2.78 X10^3/uL (0.83-4.51); Absolute Neutrophil Count 4.8 X10^3/uL (2.0-7.7); Basophil# 0.06 X10^3/uL; Basophil% 0.7 % (0-1); Eosinophil# 0.16 X10^3/uL; Eosinophils% 1.9 % (0-5); Hematocrit 43.8 % (40-54); Hemoglobin 14.3 g/dL (13.0-16.5); Lymphocyte # 2.78 X10^3/ul (0.83-4.51); Lymphocyte % 33.3 % (19-41); Mean Corp Hgb Conc 32.6 g/dL (32-36); Mean Corpuscular Hgb 29.4 pg (27.0-32.0); Mean Corpuscular Volume 89.9 fL (80-94); Mean Platelet Vol. 9.8 fl (6.2-12.0); Monocyte# 0.53 X10^3/uL; Monocyte% 6.3 % (0-10); NRBC Flagged by Analyzer 0 % (0-5); Neutrophil # 4.79 X10^3/uL (2.7-7.7); Neutrophil % 57.4 % (47-70); Platelet Count 265 K/mm3 (150-450); RBC Distribution Width CV 13.5 % (11.6-14.6); RBC Distribution Width SD 44.9 fl (35.1-43.9); Red Blood Count 4.87 M/mm3 (4.6-6.2); White Blood Count 8.4 K/mm3 (4.4-11.0)
[2024-06-08 13:34] LABS: ALB/GLOB Ratio 1.5 RATIO (0.9-2.4); AST(SGOT) 30 U/L (<=37); Alanine Aminotransfer ALT/SGPT 19 U/L (<=46); Albumin, Serum 4.2 g/dL (3.5-5.0); Alkaline Phosphatase 156 U/L (40-129); Anion Gap 11 (5-15); BUN 15 mg/dL (4-19); BUN/Creat Ratio 15.4 RATIO (10-20); Calcium,Total 8.9 mg/dL (7.6-11.0); Carbon Dioxide 21.3 mmol/L (21.0-32.0); Chloride 106 mmol/L (98-108); Cholesterol 135 mg/dL (<=200); Creatinine, Serum 0.98 mg/dL (0.70-1.20); EST Glomerular Filtration Rate 99 (>60); Globulin 2.9 g/dL (2.2-4.2); Glucose 106 mg/dL (70-99); High Density Lipoprotein 43 mg/dL; Low Density Lipoprotein Calc. 74 mg/dL; Potassium 4.2 mmol/L (3.3-5.1); Protein, Total 7.2 g/dL (5.9-8.4); Sodium Level 138 mmol/L (133-145); Total Bilirubin 0.25 mg/dL (0.00-1.30); Triglycerides 89 mg/dL; Very Low Density Lipoprotein 18 mg/dL (5-40); cholesterol:hdl ratio screen 3.13
== END | disposition home or self-care (01) ==
LOC: BIMLAB 11:02
PROVIDERS: PCP Internal Medicine; Referring Provider Internal Medicine; Visit Provider Internal Medicine
DX: K76.0 Fatty (change of) liver, not elsewhere classified (principal); K63.9 Disease of intestine, unspecified
CPT/HCPCS: 36415; 80053; 80061; 85025; 86140

== ENCOUNTER 2024-06-13 19:51 | Emergency (ER) | payer MEDICAID, SELFPAY ==
[2024-06-13 19:52] VITALS: BP 141/78; PULSE 101; RESP 18; TEMP 36.6; O2SAT 98; BMI 34.2
--- NOTE | 2024-06-13 20:03 | EDS_ITS ---
HPI History of Present Illness Chief Complaint: Abd Pain [facility] Medical History (Updated 06/08/24 @ 10:[address] Jackie Batres MD) Back problem Testicular swelling Home Medications ?Medication ?Instructions ?Recorded ?Last Taken ?Type NK 06/08/24 Unknown History Allergy/AdvReac Type Severity Reaction Status Date / Time No Known Allergies Allergy Verified 06/13/24 19:53 Family History (Updated 06/08/24 @ 10:[address] Jackie Batres MD) Other No pertinent family history Surgical History (Updated 06/08/24 @ 10:[address] Jackie Batres MD) No pertinent past surgical history Social History (Updated 06/08/24 @ 10:[address] Jackie Batres MD) adopted: No household members: none current occupational status: employed current occupation: [employer] current occupational exposures/hazards: No Smoking Status: Current every day smoker tobacco type: cigarettes alcohol intake: never substance use type: does not use what type of physical activity do you participate in: walking frequency: 5-6 times per week seatbelt use: always do you feel safe at home: Yes EXAM Physical Exam Const Vital Signs: 06/13/24 19:52 Temperature 97.8 F Temperature Source Oral Pulse Rate 101 H Respiratory Rate 18 Blood Pressure 141/78 H Blood Pressure Mean 99 Pulse Ox 98 Oxygen Delivery Method Room Air MDM MDM MDM Narrative Medical decision making narrative: HISTORY OF PRESENT ILLNESS: Chief complaint: Abdominal pain 44-year-old male presents with left-sided abdominal pain. He states this began REVIEW OF SYSTEMS: Pertinent positives: Abdominal pain Pertinent negatives: Vomiting PHYSICAL EXAM: Nursing triage notes reviewed, Vital signs reviewed Constitutional: please see mdm HENT: MMM Eyes: Pupils equal round and reactive to light, Extraocular muscles intact Neck: No stridor, no JVD, full neck ROM Lungs: Clear to auscultation, No wheezing or rales. No increased work of breathing, no conversational dyspnea, no accessory muscle use, no nasal flaring. No respiratory distress noted Heart: Regular rate and rhythm, No murmurs, No rubs and No gallops, 2+ distal pulses (radial, femoral, posterior tibial) in all extremities Abdomen: Soft, there is no tenderness, rigidity, rebound or guarding, no obvious peritoneal signs, no palpable pulsatile abdominal masses, no auscultated abdominal bruit : No CVAT Extremities: No edema Neuro: No new focal neurological deficits, cranial nerves II through XII intact, 5/5 strength in all present extremities. Intact sensation to light touch in all present extremities, 2+ reflexes bilateral patella tendons. Skin: No rash or lesions noted MEDICAL DECISION MAKING: Chief Complaint: please see HPI External records reviewed: Reviewed prior imaging studies: CT scan abdomen pelvis from March 2024 shows that infiltration of liver, left adrenal adenoma, thickening of the terminal ileum Factors affecting care: Fatty liver Social determinants of health: Denies alcohol use History obtained from others: none Consults: none [facility] Narrative: The patient was initially tachycardic with a pulse of 101 otherwise afebrile and nontoxic-appearing per abdominal exam I considered the following differential diagnosis: AAA, small bowel obstruction, abdominal perforation, appendicitis, pancreatitis, hepatobiliary pathology (acute cholecystitis), mesenteric ischemia, pathology (ie nephrolithiasis, pyelonephritis). I obtained a broad lab and imaging workup to further elucidate etiology of the patient's complaints. ALL IMAGES (IF OBTAINED) HAVE BEEN PERSONALLY REVIEWED AND INTERPRETED BY MYSELF. CBC without leukocytosis, severe anemia, no thrombocytopenia. Lipase is wnl indicating no pancreatic inflammation. CMP without evidence of acute kidney injury, significant electrolyte abnormality, anion gap to suggest end organ hypo-perfusion, no evidence of metabolic acidosis with a normal bicarbonate, no evidence of hepatobiliary obstructive pathology. Urinalysis shows no evidence of urinary inflammation suggestive of UTI CT scan abdomen pelvis shows no evidence of obvious intra-abdominal abnormality The synthesis of the patient's history, physical exam, labs images suggest no acute life-threatening etiology. Encourage close GI follow-up The patient and/or family, caregivers express understanding. The patient and/or family, caregivers agrees with the plan. Shared decision making: I will have a discussion with the patient and or visitors regarding risk/benefits of further testing or admission. They will be made aware of of the risk/benefits inherent in this decision they will be given the opportunity to voice understanding. Total critical care time today provided was at least 0 minutes. This excludes separately billable procedures. Critical care time (if documented) is secondary to the patient having high probability of clinically significant/life threatening deterioration in the patient's condition which required my urgent intervention. Impression: 1. Acute Abdominal pain Dispo: Discharge home This note was generated with Dragon dictation software. It may contain incorrect words, spelling, and punctuation that were not noted in review of the chart prior to signing. Lab Data Labs: Laboratory Results - last 24 hr 06/13/24 06/13/24 20:08 20:34 WBC 8.7 RBC 4.72 Hgb 14.0 Hct 42.0 MCV 89.0 MCH 29.7 MCHC 33.3 RDW Std Deviation 44.3 H RDW Coeff of Pilar 13.5 Plt Count 269 MPV 9.2 Immature Gran % (Auto) 0.300 Neut % (Auto) 59.8 Lymph % (Auto) 31.6 [place] % (Auto) 6.5 Eos % (Auto) 1.2 Baso % (Auto) 0.6 Absolute Neuts (auto) 5.2 Absolute Lymphs (auto) 2.74 Nucleated RBC % 0 Sodium 139 Potassium 4.2 Chloride 107 Carbon Dioxide 21.6 Anion Gap 11 BUN 12 Creatinine 1.15 Estim Creat Clear Calc 106.21 Est GFR (MDRD) Non-Af 81 BUN/Creatinine Ratio 10.7 Glucose 93 Calcium 8.5 Total Bilirubin 0.30 AST 29 ALT 18 Alkaline Phosphatase 153 H Total Protein 6.8 Albumin 4.0 Globulin 2.8 Albumin/Globulin Ratio 1.4 Lipase 41 Urine Color Yellow Urine Clarity Sl. Cloudy Urine pH 6.0 Ur Specific [place] 1.020 Urine Protein 30 H Urine Glucose (UA) Normal Urine Ketones 5 H Urine Occult Blood Negative Urine Nitrite Negative Urine Bilirubin Negative Urine Urobilinogen 4 H Ur Leukocyte Esterase 100 H Urine RBC 0-5 SEEN Urine WBC 10-25 SEEN Ur Squamous Epith Cells 0-5 SEEN Urine Bacteria 0 SEEN Urine Mucus 1+ Radiography Diagnostic Testing: Clinical Impression(s) from Imaging Studies Abdomen/Pelvis CT 06/13/24 20:42 IMPRESSION: 1. Left adrenal gland nodule statistically most likely adenoma. 2. Marked urinary bladder wall thickening. Can not exclude cystitis. 3. Mild diverticulosis without signs of diverticulitis. 4. Other nonacute findings detailed above. Reading Location: [place] Discharge Plan Triage Chief Complaint: Abd Pain ED Provider: Clifford Mendez Dx/Rx/DC Orders Instructions: ED Abdominal Pain Unkn Cause Male... Prescriptions: No Action NK Primary Care Provider: Jackie Batres Referrals: Jackie Batres MD [Primary Care Provider] - Activity Restrictions/Additional Instructions: Thank you for trusting us with your care today! Your labs images are reassuring. Specifically no sign of acute surgical pathology in the abdomen or pelvis. Please take Tylenol (2 pills, 650 mg), ibuprofen (2 pills, 400 mg) every 6 hours as needed for pain and fever control. Please return to the emergency department if your symptoms change or worsen. Of note an adrenal nodule/adrenal adenoma was found. This is likely benign or not pathologic but will require outpatient evaluation by your primary care physician for monitoring to assess if it changes which could suggest a more concerning pathology (i.e. cancer). Please follow with your primary care physician for further outpatient evaluation and management. Print Language: Jamaican Disposition Disposition: Home, Self Care
[2024-06-13] MEDS: Ondansetron 4 MG/2 ML Vial IV (20:33)
[2024-06-13] MEDS: 0.9% Normal Saline (1000mL) 1,000 ML 999 ML IV (20:33)
[2024-06-13] MEDS: Ketorolac 15 MG/ML Vial IV (20:33)
[2024-06-13 20:40] LABS: Bacteria 0 SEEN /hpf (None Seen)
[2024-06-13 20:41] LABS: Absolute Lymphocyte Count 2.74 X10^3/uL (0.83-4.51); Absolute Neutrophil Count 5.2 X10^3/uL (2.0-7.7); Basophil# 0.05 X10^3/uL; Basophil% 0.6 % (0-1); Eosinophils% 1.2 % (0-5); Lymphocyte # 2.74 X10^3/ul (0.83-4.51); Lymphocyte % 31.6 % (19-41); Mean Corp Hgb Conc 33.3 g/dL (32-36); Mean Corpuscular Hgb 29.7 pg (27.0-32.0); Mean Platelet Vol. 9.2 fl (6.2-12.0); Monocyte# 0.56 X10^3/uL; Monocyte% 6.5 % (0-10); NRBC Flagged by Analyzer 0 % (0-5); Neutrophil % 59.8 % (47-70); Platelet Count 269 K/mm3 (150-450); RBC Distribution Width CV 13.5 % (11.6-14.6); RBC Distribution Width SD 44.3 fl (35.1-43.9); Red Blood Count 4.72 M/mm3 (4.6-6.2); White Blood Count 8.7 K/mm3 (4.4-11.0)
--- NOTE | 2024-06-13 20:42 | CT_ITS ---
PROCEDURE: ABDOMEN/PELVIS W IV CONT ONLY 06/13/2024 REASON FOR EXAM: LEFT LOWER QUAD ABDOMINAL TECHNIQUE: Contiguous axial scans of 3.75 mm slice thicknesses. Sagittal and coronal reconstruction images were obtained. One or more dose reduction techniques were used (e.g., automated exposure control, adjustment of mA and/or kv according to patient size, use of iterative reconstruction technique). PATIENT PREPARATION: Per protocol ORAL CONTRAST TYPE: None. CONTRAST: Isovue 370 VOLUME: 99 mL RADIATION DOSE SUMMARY: CTDlvol: 20.26 mGy DLP: 1313.69 mGycm COMPARISON: CT abdomen and pelvis dated 04/25/2024 FINDINGS: Lung bases: Unremarkable. Liver: Unremarkable Gallbladder: Normal Spleen: Normal in size and attenuation Pancreas: Normal. Adrenals: A 1.7 cm left adrenal gland nodule, axial image 27. Kidneys: Excrete contrast material symmetrically. No masses. No calcifications. Bladder: Marked urinary bladder wall thickening. Reproductive Organs: Normal prostate gland. Bowel: Mild left hemicolon diverticulosis. Appendix: Unremarkable Lymph nodes: No suspicious adenopathy. Vasculature: Unremarkable. Peritoneum / Retroperitoneum: No masses. No free air. No free fluid. Anterior abdominal wall: Bilateral fat containing inguinal hernias. Bones: Multilevel spondylosis. CT/Abdomen/Pelvis W IV Cont ONLY IMPRESSION: 1. Left adrenal gland nodule statistically most likely adenoma. 2. Marked urinary bladder wall thickening. Can not exclude cystitis. 3. Mild diverticulosis without signs of diverticulitis. 4. Other nonacute findings detailed above. Reading Location: [place]
[2024-06-13 20:56] LABS: Lipase 41 U/L (13-75)
[2024-06-13 20:58] LABS: ALB/GLOB Ratio 1.4 RATIO (0.9-2.4); AST(SGOT) 29 U/L (<=37); Alanine Aminotransfer ALT/SGPT 18 U/L (<=46); Alkaline Phosphatase 153 U/L (40-129); Anion Gap 11 (5-15); BUN 12 mg/dL (4-19); BUN/Creat Ratio 10.7 RATIO (10-20); Calcium,Total 8.5 mg/dL (7.6-11.0); Carbon Dioxide 21.6 mmol/L (21.0-32.0); Chloride 107 mmol/L (98-108); Creatinine, Serum 1.15 mg/dL (0.70-1.20); EST Glomerular Filtration Rate 81 (>60); Estimated Creatinine Clearance 106.21 ml/min (50-250); Globulin 2.8 g/dL (2.2-4.2); Glucose 93 mg/dL (70-99); Potassium 4.2 mmol/L (3.3-5.1); Protein, Total 6.8 g/dL (5.9-8.4); Sodium Level 139 mmol/L (133-145)
[2024-06-13 21:05] LABS: Color, Urine Yellow (Yellow); Glucose, Dipstick Normal (Normal); Ketone-Dipstick 5 mg/dl (Negative); Leukocyte Esterase-Dipstick 100 /ul (Negative); Nitrite-Dipstick Negative (Negative); Occult Blood-Urine Negative /ul (Negative); Protein-Dipstick 30 mg/dl (Negative); Urine Bilirubin Dipstick Negative (Negative); Urine Clarity Sl. Cloudy (Clear); Urine Urobilinogen 4 mg/dl (Normal)
[2024-06-13 21:21] LABS: White Blood Cells 10-25 SEEN /hpf (0-5)
[2024-06-13 21:22] LABS: Red Blood Cells-Urine 0-5 SEEN /hpf (0-5)
[2024-06-13 21:23] LABS: Mucous, Urine 1+ /hpf (<or=2+)
[2024-06-13 21:24] LABS: Squamous Epithelial Cells - UA 0-5 SEEN /hpf (0-5)
[2024-06-13 22:37] VITALS: BP 132/84; PULSE 99; RESP 17; TEMP 36.9; O2SAT 99
== END 2024-06-13 22:37 | disposition home or self-care (01) ==
PROVIDERS: Emergency Provider Emergency Medicine; PCP Internal Medicine; Referring Provider Emergency Medicine; Visit Provider Emergency Medicine
DX: R10.9 Unspecified abdominal pain (principal); F17.210 Nicotine dependence, cigarettes, uncomplicated
CPT/HCPCS: 74177; 80053; 81001; 83690; 85025; 96361; 96374; 96375; 99283; Q9967; A4216; J2405